=== PATIENT | female | born 1985 | race Hispanic/Latino ===

== ENCOUNTER 2024-06-08 08:37 | Observation (INO) | payer BC ==
[2024-06-08] MEDS ORDERED: Glucagon 1 MG/ML KIT IM PRN (08:41)
[2024-06-08] MEDS ORDERED: Dextrose 5% in Water 1,000 ML IV PRN (08:41)
[2024-06-08] MEDS ORDERED: hydrALAZINE 20 MG/ML VIAL SLOW IVP PRN (08:41)
[2024-06-08] MEDS ORDERED: Calcium Carbonate 500 MG ChewTAB PO PRN (08:41)
[2024-06-08] MEDS ORDERED: traMADol HCl 50 MG TAB PO PRN ×2 (08:41→10:07)
[2024-06-08] MEDS ORDERED: Ipratropium/Albuterol 3 ML NEB NEB PRN (08:41)
[2024-06-08] MEDS ORDERED: Acetaminophen 325 MG TAB PO PRN (08:41)
[2024-06-08] MEDS ORDERED: Promethazine HCl 25 MG/ML VIAL IM PRN (08:41)
[2024-06-08] MEDS ORDERED: Ondansetron PF 4 MG/2 ML Vial IVP PRN (08:41)
[2024-06-08] MEDS ORDERED: Dextrose 50% Abboject 50 ML SYRINGE SLOW IVP PRN (08:41)
[2024-06-08] MEDS ORDERED: HYDROcodone/Acetaminophen 5/325 mg Tablet PO PRN (08:41)
[2024-06-08] MEDS ORDERED: Mag-Al 1200 mg/1200 mg/30 ML UDCUP PO PRN (08:41)
[2024-06-08] MEDS ORDERED: Famotidine/PF 20 mg/2ml Vial SLOW IVP SCH (09:00)
[2024-06-08] MEDS ORDERED: Famotidine 20 MG TAB PO SCH (09:00)
[2024-06-08] MEDS ORDERED: Bupivacaine PF 0.5% 30 ML VIAL ONE (09:20)
[2024-06-08] MEDS ORDERED: EPINEPHrine 1 MG/ML VIAL ONE (09:20)
[2024-06-08] MEDS ORDERED: fentaNYL PF 100 MCG/2 ML SYRINGE ONE ×2 (09:29→10:33)
[2024-06-08] MEDS ORDERED: PROPOFOL 20 ML ONE ×2 (09:29→10:47)
[2024-06-08] MEDS ORDERED: Midazolam HCl 2 mg/2 ml Vial ONE (09:29)
[2024-06-08] MEDS ORDERED: Iopamidol 15 ML ONE (09:30)
[2024-06-08] MEDS ORDERED: Rocuronium Bromide 10 MG/ML (10ML VIAL) ONE (09:32)
[2024-06-08] MEDS ORDERED: Lidocaine 2% PF 5 ML VIAL ONE (09:32)
[2024-06-08] MEDS ORDERED: Ibuprofen 600 MG TAB PO PRN (10:09)
[2024-06-08] MEDS ORDERED: Dexamethasone 4 mg/ml Vial ONE (10:31)
[2024-06-08] MEDS ORDERED: Ondansetron PF 4 MG/2 ML Vial ONE (10:31)
[2024-06-08] MEDS ORDERED: PHENYLEPHRINE-NS 100 MCG/ML 10 ML SYRINGE ONE (10:38)
[2024-06-08] MEDS ORDERED: Dexmedetomidine 200 MCG/2 ML VIAL ONE (10:43)
[2024-06-08] MEDS ORDERED: SUGAMMADEX SODIUM 200 MG/2 ML VIAL ONE (10:56)
[2024-06-08] MEDS ORDERED: HYDROmorphone 2 MG/ML VIAL ONE (11:08)
[2024-06-08] MEDS ORDERED: Ketorolac Tromethamine 30 MG (1 mL) VIAL ONE (11:10)
[2024-06-08 12:19] VITALS: BP 127/81; TEMP 98
[2024-06-08] MEDS ORDERED: Acetaminophen 325 MG TAB PO SCH (13:00)
[2024-06-08 13:10] VITALS: BMI 27.7
[2024-06-08] MEDS ORDERED: Glucagon 1 MG/ML KIT ONE (13:53)
[2024-06-08] MEDS: Ketorolac Tromethamine 30 MG (1 mL) VIAL IVP SCH (14:37)
[2024-06-08] MEDS: Scopolamine 1 mg/72 hour Patch TD SCH (16:03)
[2024-06-08] MEDS: Acetaminophen 500 MG TAB PO SCH (16:03)
== END 2024-06-08 18:00 | disposition home or self-care (01) ==
LOC: SURG B 08:37
PROVIDERS: ADMIT Specialist; ATTEND Specialist
PROC: 0FT44ZZ Resection of Gallbladder, Percutaneous Endoscopic Approach (ICD-10-PCS; principal; 2024-06-08)
DX: K80.12 Calculus of gallbladder with acute and chronic cholecystitis without obstruction (principal); E80.7 Disorder of bilirubin metabolism, unspecified
CPT/HCPCS: 47532; 76705; 88304; C1889; J0171; J0665; J1100; J1171; J1611; J1885; J2250; J2405; J2704; Q9967

== ENCOUNTER 2024-07-18 15:52 | Emergency (ER) | payer BC ==
[2024-07-18 16:27] LABS: #Basophils 0.04 10x3/uL (0.0-0.2); %Basophils 0.6 % (0.0-1.0); %Eosinophils 4.3 % (0.0-10.0); %Lymphocytes 24.7 % (21.0-51.0); %Monocytes 6.9 % (0.0-10.0); %Neutrophils 63.2 % (42.0-75.0); Hematocrit 39.3 % (36.0-47.0); Hemoglobin 12.7 g/dL (12.0-16.0); Mean Corpuscular HGB CONC 32.3 g/dL (32.0-36.0); Mean Corpuscular Volume 89.7 fL (78.0-98.0); Mean Platelet Volume 10.8 fL (7.4-10.4); Platelet Count 217 10x3/uL (130-400); RBC Distribution Width 13.4 % (11.5-14.5); Red Blood Cell (RBC) Count 4.38 mill/uL (4.20-5.40)
[2024-07-18 16:54] LABS: BHCG - Serum POSITIVE (NEGATIVE); Pregs Control Background? CLEAR/WHITE (CLR/WHITE); Pregs Control Bar Appear? YES (CONTROL BAR)
[2024-07-18] MEDS ORDERED: Acetaminophen 500 MG TAB ONE (17:45)
[2024-07-18 18:13] LABS: ALT (SGPT) 22 U/L (Less than 34); AST (SGOT) 18 U/L (11-34); Albumin 4.3 g/dL (3.1-4.5); Alkaline Phosphatase 53 U/L (40-110); Anion Gap 13 mmol/L (10-20); BUN (Urea Nitrogen) 10 mg/dL (7.0-18.7); Bilirubin, Total 0.2 mg/dL (0.3-1.2); Calc. Creatinine Clearance 0 mL/min (70-130); Calcium 9.4 mg/dL (7.8-10.44); Carbon Dioxide 23 mmol/L (22-29); Chloride 109 mmol/L (98-107); Estimated GFR 116; Globulin 3.2 g/dL (2.4-3.5); Glucose 117 mg/dL (70-105); Lipase 33 U/L (8-78); Potassium 3.8 mmol/L (3.5-5.1); Protein, Total 7.5 g/dL (6.0-8.3); Sodium 141 mmol/L (136-145)
[2024-07-18 18:21] LABS: Bilirubin Negative (Negative); Blood, Urine 3+ (Negative); CAUTI Indications for Culture Acute Hematuria; Glucose, Urine (Dipstick) Normal (Negative); Ketone, Urine Negative (Negative); Leukocyte 250 Leu/uL (Negative); Nitrite Negative (Negative); Protein, Urine (Dipstick) 50 mg/dL (Neg-Trace); RBC/HPF Greater than 50 HPF (0-3); Specific Gravity, Urine 1.018 (1.002-1.036); Squamous Epithelial 0-3 HPF (0-3); Urobilinogen Normal mg/dL (Less than 2)
[2024-07-18 18:24] LABS: Bacteria/HPF 1+ HPF (None Seen)
[2024-07-18 18:25] LABS: Clarity Bloody (Clear)
[2024-07-18 18:26] LABS: Urine Culture Reflex Yes Yes
== END 2024-07-18 21:17 | disposition home or self-care (01) ==
LOC: ERS 15:52
DX: O09.90 Supervision of high risk pregnancy, unspecified, unspecified trimester (principal); O20.9 Hemorrhage in early pregnancy, unspecified; O23.40 Unspecified infection of urinary tract in pregnancy, unspecified trimester; N39.0 Urinary tract infection, site not specified; Z3A.00 Weeks of gestation of pregnancy not specified
CPT/HCPCS: 36415; 76856; 80053; 81001; 83690; 84702; 84703; 85025; 86900; 86901; 87086

== ENCOUNTER 2024-07-21 11:17 | Emergency (ER) | payer BC ==
[2024-07-21 11:56] LABS: #Basophils 0.04 10x3/uL (0.0-0.2); %Basophils 0.6 % (0.0-1.0); %Eosinophils 2.6 % (0.0-10.0); %Lymphocytes 22.3 % (21.0-51.0); %Monocytes 5.3 % (0.0-10.0); %Neutrophils 68.9 % (42.0-75.0); Hematocrit 37.3 % (36.0-47.0); Hemoglobin 12.3 g/dL (12.0-16.0); Mean Corpuscular Hemoglobin 29.6 pg (27.0-31.0); Mean Corpuscular Volume 89.7 fL (78.0-98.0); Mean Platelet Volume 10.7 fL (7.4-10.4); Platelet Count 203 10x3/uL (130-400); RBC Distribution Width 13.7 % (11.5-14.5); Red Blood Cell (RBC) Count 4.16 mill/uL (4.20-5.40)
[2024-07-21 13:43] LABS: Bacteria/HPF None Seen HPF (None Seen); Bilirubin Negative (Negative); Blood, Urine 3+ (Negative); CAUTI Indications for Culture Pelvic or flank pain; Glucose, Urine (Dipstick) Normal (Negative); Ketone, Urine Negative (Negative); Leukocyte Negative Leu/uL (Negative); Nitrite Negative (Negative); Protein, Urine (Dipstick) Negative (Neg-Trace); RBC/HPF Greater than 50 HPF (0-3); Squamous Epithelial 0-3 HPF (0-3); Urobilinogen Normal mg/dL (Less than 2); WBC/HPF None Seen HPF (0-3)
[2024-07-21 13:45] LABS: Clarity Turbid (Clear)
[2024-07-21 13:46] LABS: Urine Culture Reflex No No
== END 2024-07-21 14:18 | disposition home or self-care (01) ==
LOC: ERS 11:17
DX: O03.4 Incomplete spontaneous abortion without complication (principal)
CPT/HCPCS: 36415; 76801; 81001; 84702; 85025